=== PATIENT | female | born 1985 | race Caucasian/White ===

== ENCOUNTER → 2017-10-23 | Outpatient (CLI) | payer BC ==
[~2017-10-23] MED LIST: MULT-516 PO; SERT50TA PO
== END | disposition home or self-care (01) ==
LOC: STAR 10:32
PROVIDERS: ATTEND Specialist
DX: Z02.9 Encounter for administrative examinations, unspecified (principal)

== ENCOUNTER 2017-10-29 05:35 | Day surgery (SDC) | payer BC ==
[~2017-10-29] VITALS: Ht 162.6 cm; Wt 68.2 kg
[2017-10-29] MEDS ORDERED: LACTATED RINGERS 1,000 ML IV SCH (06:07)
[2017-10-29] MEDS ORDERED: BUPIVACAINE 0.25% ONE (06:41)
[2017-10-29] MEDS ORDERED: THROMBIN 5,000 UNIT VIAL TP ONE (06:45)
[2017-10-29 06:49] LABS: HCG UR SG 1.003 (1.003-1.030)
[2017-10-29] MEDS ORDERED: MIDAZOLAM 1 MG/ML, 2ML ONE (07:15)
[2017-10-29] MEDS ORDERED: FENTANYL PF 250 MCG/5ML ONE (07:16)
[2017-10-29] MEDS ORDERED: PROPOFOL 50 ML ONE (07:20)
[2017-10-29] MEDS ORDERED: FENTANYL PF 100 MCG/2ML IV PRN (07:30)
[2017-10-29] MEDS ORDERED: HYDROmorphone 1 MG/ML, 1ML IV PRN (07:30)
[2017-10-29] MEDS ORDERED: ACETAMINOPHEN 500 MG TABLET PO ONE (07:30)
[2017-10-29] MEDS ORDERED: OXYcodone 5 MG/5 ML ORAL.SOL UDC PO PRN (07:30)
[2017-10-29] MEDS ORDERED: LORazepam 2 MG/ML, 1ML IVPush PRN (07:30)
[2017-10-29] MEDS ORDERED: PROMETHAZINE 25 MG/ML, 1ML IV PRN (07:30)
[2017-10-29] MEDS ORDERED: MEPERIDINE/PF 25MG/0.5ML IVPush PRN (07:30)
[2017-10-29] MEDS ORDERED: OxyconTIN ER 10 MG TAB.ER PO ONE (07:30)
[2017-10-29] MEDS ORDERED: FAMOTIDINE 20 MG TABLET PO ONE (07:30)
[2017-10-29] MEDS ORDERED: MORPHINE SULFATE 4 MG/ML, 1ML IVPush PRN (07:30)
[2017-10-29] MEDS ORDERED: PROMETHAZINE 25 MG/ML, 1ML IM PRN (07:30)
[2017-10-29] MEDS ORDERED: CEFOTETAN PMX 2GM/50ML 50 ML ONE (07:42)
[2017-10-29] MEDS ORDERED: ROCURONIUM 10MG/ML,5ML ONE (07:54)
[2017-10-29] MEDS ORDERED: NEOSTIGMINE 1 MG/ML, 10ML ONE (07:54)
[2017-10-29] MEDS ORDERED: SUCCINYLCHOLINE 20 MG/ML, 10ML ONE (07:54)
[2017-10-29] MEDS ORDERED: PROPOFOL 10 MG/ML, 20ML ONE (07:54)
[2017-10-29] MEDS ORDERED: GLYCOPYRROLATE 0.2MG/1ML, 5ML ONE (07:54)
[2017-10-29] MEDS ORDERED: DEXAMETHASONE 4 MG/ML, 1ML ONE (07:54)
[2017-10-29] MEDS ORDERED: ONDANSETRON 2MG/ML, 2ML ONE (07:54)
[2017-10-29] MEDS ORDERED: CEFAZOLIN 1,000 MG ONE (07:54)
[2017-10-29] MEDS ORDERED: EPHEDRINE 50 MG/ML, 1ML ONE (07:55)
[2017-10-29] MEDS ORDERED: INDIGO CARMINE 0.8%, 5ML ONE (09:33)
[2017-10-29] MEDS ORDERED: MEPERIDINE/PF 50 MG/ML ONE (10:05)
== END 2017-10-29 13:30 | disposition home or self-care (01) ==
LOC: OUT 05:35
PROVIDERS: ATTEND Specialist
DX: N92.0 Excessive and frequent menstruation with regular cycle (principal); N94.6 Dysmenorrhea, unspecified; N94.10 Unspecified dyspareunia; N70.11 Chronic salpingitis; G43.909 Migraine, unspecified, not intractable, without status migrainosus; N73.6 Female pelvic peritoneal adhesions (postinfective); N83.8 Other noninflammatory disorders of ovary, fallopian tube and broad ligament; F41.9 Anxiety disorder, unspecified; Z90.49 Acquired absence of other specified parts of digestive tract; Z98.890 Other specified postprocedural states; Z87.442 Personal history of urinary calculi; Z87.01 Personal history of pneumonia (recurrent); Z72.89 Other problems related to lifestyle; Z88.6 Allergy status to analgesic agent; Z88.8 Allergy status to other drugs, medicaments and biological substances
CPT/HCPCS: 58571; 81025; 88307; J1100; J2175; J2250; J2405; J2704; J2710; J3010; J3490; J7120; S0074; J0690; J0330

== ENCOUNTER 2019-03-25 07:54 | Outpatient (CLI) | payer BC | END 2019-03-25 23:59 | disposition home or self-care (01) | LOC: WOUND 07:54 | PROVIDERS: ATTEND Internal Medicine | DX: T81.32XA Disruption of internal operation (surgical) wound, not elsewhere classified, initial encounter (principal); L97.422 Non-pressure chronic ulcer of left heel and midfoot with fat layer exposed; G43.909 Migraine, unspecified, not intractable, without status migrainosus; F41.9 Anxiety disorder, unspecified; F32.9 Major depressive disorder, single episode, unspecified; Z90.49 Acquired absence of other specified parts of digestive tract; Z88.6 Allergy status to analgesic agent; Z88.8 Allergy status to other drugs, medicaments and biological substances; Z98.890 Other specified postprocedural states; Z87.01 Personal history of pneumonia (recurrent); Y83.8 Other surgical procedures as the cause of abnormal reaction of the patient, or of later complication, without mention of misadventure at the time of the procedure; Y92.89 Other specified places as the place of occurrence of the external cause | CPT/HCPCS: 97597; 99215 ==

== ENCOUNTER 2019-04-01 08:32 | Outpatient (CLI) | payer BC | END 2019-04-01 23:59 | disposition home or self-care (01) | LOC: WOUND 08:32 | PROVIDERS: ATTEND Internal Medicine | DX: T81.32XD Disruption of internal operation (surgical) wound, not elsewhere classified, subsequent encounter (principal); L97.422 Non-pressure chronic ulcer of left heel and midfoot with fat layer exposed; G43.909 Migraine, unspecified, not intractable, without status migrainosus; F41.9 Anxiety disorder, unspecified; F32.9 Major depressive disorder, single episode, unspecified; Z90.49 Acquired absence of other specified parts of digestive tract; Z88.6 Allergy status to analgesic agent; Z88.8 Allergy status to other drugs, medicaments and biological substances; Z98.890 Other specified postprocedural states; Z87.01 Personal history of pneumonia (recurrent); Y83.8 Other surgical procedures as the cause of abnormal reaction of the patient, or of later complication, without mention of misadventure at the time of the procedure | CPT/HCPCS: 97597 ==

== ENCOUNTER 2019-04-22 08:32 | Outpatient (CLI) | payer BC | END 2019-04-22 23:59 | disposition home or self-care (01) | LOC: WOUND 08:32 | PROVIDERS: ATTEND Internal Medicine | DX: T81.32XD Disruption of internal operation (surgical) wound, not elsewhere classified, subsequent encounter (principal); L97.422 Non-pressure chronic ulcer of left heel and midfoot with fat layer exposed; G43.909 Migraine, unspecified, not intractable, without status migrainosus; F41.9 Anxiety disorder, unspecified; F32.9 Major depressive disorder, single episode, unspecified; Z90.49 Acquired absence of other specified parts of digestive tract; Z88.6 Allergy status to analgesic agent; Z88.8 Allergy status to other drugs, medicaments and biological substances; Z98.890 Other specified postprocedural states; Z87.01 Personal history of pneumonia (recurrent); Z90.710 Acquired absence of both cervix and uterus; Z90.89 Acquired absence of other organs; Y83.8 Other surgical procedures as the cause of abnormal reaction of the patient, or of later complication, without mention of misadventure at the time of the procedure | CPT/HCPCS: 97597 ==